=== PATIENT | female | born 1965 | race Caucasian/White ===

== ENCOUNTER 2017-06-26 07:38 | Emergency (ER) | payer MEDICAID ==
[~2017-06-26] VITALS: Ht 160 cm; Wt 59.0 kg
[2017-06-26] MEDS ORDERED: IPRATROPIUM BROMIDE (0.02%) 0.5MG/2.5ML NEB HHN STA (09:49)
[2017-06-26] MEDS ORDERED: ALBUTEROL (0.083%) 2.5MG/3ML NEB HHN STA (09:49)
[2017-06-26] MEDS ORDERED: PREDNISONE 20MG TABLET PO STA (09:49)
[2017-06-26 11:58] VITALS: BP 119/78
== END 2017-06-26 13:26 | disposition home or self-care (01) ==
LOC: ER 08:22
DX: R05 Cough (principal); J00 Acute nasopharyngitis [common cold]; R50.9 Fever, unspecified; R06.2 Wheezing; J45.909 Unspecified asthma, uncomplicated; Z88.0 Allergy status to penicillin
CPT/HCPCS: 71010; 94640; 99283; J7512; J7611

== ENCOUNTER 2018-07-27 09:24 | Emergency (ER) | payer MEDICAID ==
[~2018-07-27] VITALS: Ht 160 cm; Wt 60.0 kg
[2018-07-27 11:03] VITALS: BP 129/75
== END 2018-07-27 13:12 | disposition left against medical advice (07) ==
LOC: ER 09:24
DX: Z53.21 Procedure and treatment not carried out due to patient leaving prior to being seen by health care provider (principal)